=== PATIENT | female | born 1960 | race Caucasian/White ===

== ENCOUNTER → 2024-04-27 14:08 | Outpatient (REF) | payer OTHER, SELFPAY | LOC: HWRAD 14:08 | PROVIDERS: ATTENDING PHYSICIAN Physician Assistant; FAMILY PHYSICIAN Family Medicine; OTHER PHYSICIAN Internal Medicine Hematology & Oncology; OTHER PHYSICIAN Internal Medicine Rheumatology; REFERRING PHYSICIAN Nurse Practitioner Primary Care | DX: M79.643 Pain in unspecified hand (principal); R61 Generalized hyperhidrosis | CPT/HCPCS: 71046; 73130; 73630 ==

== ENCOUNTER → 2024-12-25 09:41 | Outpatient (REF) | payer OTHER, SELFPAY | LOC: RAD 09:41 | PROVIDERS: ATTENDING PHYSICIAN Internal Medicine Rheumatology; FAMILY PHYSICIAN Family Medicine | DX: M81.0 Age-related osteoporosis without current pathological fracture (principal) | CPT/HCPCS: 77080 ==